=== PATIENT | female | born 1980 | race Caucasian/White ===

== ENCOUNTER 2019-04-13 23:46 | Emergency (ER) | payer OTHER ==
[~2019-04-13] VITALS: Ht 114.3 cm; Wt 45.4 kg
[~2019-04-13 23:46] MED LIST: ACETAMINOPHEN325 M1 PO; ACYCLOVIR 400400 M1 PO; ACYCLOVIR 400400 MG PO; ALBUTEROL2.5 MG/0.5 INH; ANTI-DIARRHEA2 MG PO; APAP500; ASPIR 8181 MG PO; BISACODYL5 MG PO; BUPROPION PO; CENTRUM SILVER1 EAC2 PO; CIPROFLOXACIN500 M1 PO; CLARITIN10 M2 PO; CLARITIN10 MG PO; CLONAZEPAM PO; COLACE 100 MG100 MG PO; CYMBALTA60 MG PO; DEPAKOTE ER500 MG PO; DESYREL100 MG PO; ENALAPRIL MALEA10 M1 PO; EUCERIN CREME57 GM TP; FLEET ENEMA118 ML RE; FLEXERIL PO; FLONASE 0.05%50 MCG NASAL; HYDROCHLOROTHIA25 M1 PO; IMODIUM A-D1 MG/5 ML; IRON325 PO; KEFLEX500 MG PO; KRISTALOSE10 GM PO; LASIX 20 MG TAB20 MG PO; LEVOTHYROXINE0.05 MG PO; LINZESS145 MCG PO; LIORESAL 10 MG10 MG PO; LOPERAMIDE 2 MG2 M1 PO; MACROBID 100 M100 M1; MIRALAX17 GM PO; MULTIVITAMINS PO; NASAL DECONGEST30 MG PO; NYAMYC15 GM TOP; OMEPRAZOLE20 MG; ONDANSETRON HCL4 M2 PO; OXCARBAZEPINE150 MG; OXCARBAZEPINE300 MG PO; OYSTER SHELL C1 EAC4 PO; PHENERGAN 25 MG25 M1 PO; POLYETHYLENE G454 GM; PROMETHAZINE12.5 M1; PYRIDIUM200 MG; ROXICODONE5 M1 PO; SALINE NASAL SP30 ML NS; SENNA8.6 MG PO; SEROQUEL XR 30300 MG PO; SYNTHROID50 MCG PO; TESSALON PERLE100 MG PO; TOPAMAX50 MG PO; TOPROL XL25 MG PO; TUMS CHEWA500 MG/11 PO; TUMS PO; TYLENOL325 MG PO; URISPAS100 MG PO; VENTOLIN HFA 1818 GM INH; VITAMIN D3400 UNIT PO; ZADITOR5 M1 OPHTHALMIC; ZANTAC 150MG T150 MG PO; ZINC OXIDE60 GM TP
[2019-04-14] MEDS ORDERED: BIOTENE1000 ML SWISH&SPIT (01:29)
[2019-04-14] MEDS ORDERED: COLACE100 MG PO (01:29)
[2019-04-14] MEDS ORDERED: FLORANEX TABLE1 EACH PO (01:29)
[2019-04-14] MEDS ORDERED: ZOVIRAX200 MG PO (01:30)
[2019-04-14] MEDS ORDERED: NEURONTIN 400M400 M2 PO (01:31)
[2019-04-14] MEDS ORDERED: LATUDA40 MG PO (01:32)
[2019-04-14] MEDS ORDERED: LOPRESSOR50 MG PO (01:33)
[2019-04-14] MEDS ORDERED: MILK OF MA400 MG/5 M PO (01:35)
[2019-04-14] MEDS ORDERED: MUCINEX600 MG PO (01:38)
[2019-04-14] MEDS ORDERED: SINGULAIR 10 MG10 MG PO (01:38)
[2019-04-14] MEDS ORDERED: OXTELLAR XR300 MG PO (01:39)
[2019-04-14] MEDS ORDERED: OXYBUTYNIN 5 MG5 M2 PO (01:39)
[2019-04-14] MEDS ORDERED: OYSTER SHELL 51 EACH PO (01:41)
[2019-04-14] MEDS ORDERED: PROTONIX40 M2 PO (01:42)
[2019-04-14] MEDS ORDERED: XARELTO20 MG PO (01:43)
[2019-04-14] MEDS ORDERED: VITAMIN D32000 UNI2 PO (01:43)
[2019-04-14] MEDS ORDERED: AMBIEN5 MG PO (01:45)
[2019-04-14] MEDS ORDERED: PHENERGAN 25 MG25 M1 PO (01:46)
[2019-04-14] MEDS ORDERED: WELLBUTRIN 100100 MG PO (01:47)
[2019-04-14] MEDS ORDERED: SERTRALINE HCL100 MG PO (01:48)
[2019-04-14] MEDS ORDERED: LORAZEPAM 0.50.5 MG PO (01:49)
[2019-04-14] MEDS ORDERED: ENDOCET 5-3251 EACH PO (01:50)
[2019-04-14] MEDS ORDERED: IBU600 MG PO (01:51)
[2019-04-14 01:52] LABS: HEMATOCRIT 41.9 % (37.0-47.0); HEMOGLOBIN 13.8 gm/dL (12.0-15.0); MCH 27.4 pg (26.0-34.0); MCHC 32.9 g/dL (28.0-37.0); MCV 83.2 fL (80.0-100.0); RBC 5.04 mil/uL (4.20-5.00); RDW 15.4 % (10.5-14.5); WBC 10.7 thou/uL (4.0-11.0)
[2019-04-14 01:56] LABS: CALCIUM 9.1 mg/dL (8.5-10.1); CREATININE 0.5 mg/dL (0.6-1.0); POTASSIUM 3.3 mmol/L (3.5-5.1)
[2019-04-14 02:05] LABS: APTT 27.8 Seconds (24.5-32.8)
[2019-04-14 02:26] VITALS: BP 114/56
== END 2019-04-14 02:40 ==
LOC: ER 23:46
PROVIDERS: Emergency Medicine
DX: S01.511A Laceration without foreign body of lip, initial encounter (principal); T45.515A Adverse effect of anticoagulants, initial encounter; F17.210 Nicotine dependence, cigarettes, uncomplicated; F31.9 Bipolar disorder, unspecified; E03.9 Hypothyroidism, unspecified; K21.9 Gastro-esophageal reflux disease without esophagitis; G89.29 Other chronic pain; Z88.8 Allergy status to other drugs, medicaments and biological substances; Z88.1 Allergy status to other antibiotic agents; Z88.5 Allergy status to narcotic agent; Z79.899 Other long term (current) drug therapy; Z79.82 Long term (current) use of aspirin; Z79.01 Long term (current) use of anticoagulants; Z90.710 Acquired absence of both cervix and uterus; Z86.711 Personal history of pulmonary embolism; W05.0XXA Fall from non-moving wheelchair, initial encounter; Y93.89 Activity, other specified; Y92.128 Other place in nursing home as the place of occurrence of the external cause; Y99.9 Unspecified external cause status

== ENCOUNTER 2019-05-10 19:59 | Inpatient (IN) | payer OTHER ==
[~2019-05-10] VITALS: Ht 114.3 cm; Wt 55.0 kg
[~2019-05-10 19:59] MED LIST changes: +AMBIEN5 MG PO; +BIOTENE1000 ML SWISH&SPIT; +COLACE100 MG PO; +ENDOCET 5-3251 EACH PO; +FLORANEX TABLE1 EACH PO; +IBU600 MG PO; +LATUDA40 MG PO; +LOPRESSOR50 MG PO; +LORAZEPAM 0.50.5 MG PO; +MILK OF MA400 MG/5 M PO; +MUCINEX600 MG PO; +NEURONTIN 400M400 M2 PO; +OXTELLAR XR300 MG PO; +OXYBUTYNIN 5 MG5 M2 PO; +OYSTER SHELL 51 EACH PO; +PROTONIX40 M2 PO; +SERTRALINE HCL100 MG PO; +SINGULAIR 10 MG10 MG PO; +VITAMIN D32000 UNI2 PO; +WELLBUTRIN 100100 MG PO; +XARELTO20 MG PO; +ZOVIRAX200 MG PO
[2019-05-10] MEDS ORDERED: AUGMENTIN 875-1 EACH PO (20:04)
[2019-05-10] MEDS ORDERED: BIOTENE PBF473 ML SWISH&SPIT (20:05)
[2019-05-10] MEDS ORDERED: BIOTENE ORALBAL42 G1 PO (20:06)
[2019-05-10 20:08] VITALS: BP 100/79
[2019-05-10] MEDS ORDERED: ONDANSETRON HCL4 M3 PO (20:26)
[2019-05-10] MEDS ORDERED: BIOFREEZE118 ML TOP (20:26)
[2019-05-10] MEDS ORDERED: NYSTATIN1 EAC4 TOP (20:27)
[2019-05-10] MEDS ORDERED: NYSTATIN15 G3 TOP (20:27)
[2019-05-10] MEDS ORDERED: IPRAT-ALBUT 0.5-3 ML INH (20:28)
[2019-05-10] MEDS ORDERED: ENEMA133 M1 RECTAL (20:28)
[2019-05-10] MEDS ORDERED: AMBIEN5 MG PO (20:28)
[2019-05-10 20:54] LABS: ABSOLUTE NEUTROPHILS 7.4 thou/uL (1.4-8.2); EOSINOPHILS 1.9 % (0.0-3.0); HEMATOCRIT 44.4 % (37.0-47.0); HEMOGLOBIN 14.8 gm/dL (12.0-15.0); LYMPHOCYTES 23.7 % (24.0-44.0); MCH 27.3 pg (26.0-34.0); MCHC 33.2 g/dL (28.0-37.0); MONOCYTES 5.8 % (1.0-8.0); PLATELET COUNT 374 thou/uL (150-400); POLYS 67.6 % (36.0-66.0); RBC 5.41 mil/uL (4.20-5.00); RDW 15.7 % (10.5-14.5); WBC 10.9 thou/uL (4.0-11.0)
[2019-05-10 21:07] LABS: CALCIUM 9.7 mg/dL (8.5-10.1); CREATININE 0.5 mg/dL (0.6-1.0); POTASSIUM 3.9 mmol/L (3.5-5.1)
[2019-05-10 21:12] LABS: ALBUMIN 3.8 g/dL (3.4-5.0); TOTAL BILIRUBIN 0.2 mg/dL (<0.1-1.0); TOTAL PROTEIN 8.1 g/dL (6.4-8.2)
[2019-05-10 22:16] LABS: URINE BILIRUBIN NEGATIVE (Negative); URINE BLOOD 2+ (Negative); URINE CLARITY CLOUDY; URINE COLOR YELLOW; URINE GLUCOSE-RANDOM* NEGATIVE (Negative); URINE KETONES NEGATIVE (Negative); URINE PROTEIN (DIPSTICK) 2+ (Negative); URINE UROBILINOGEN 0.2 E.U./dl (0.2-1.0)
[2019-05-10 22:21] LABS: URINE LEUKOCYTES-REFLEX 3+ (Negative); URINE NITRITE-REFLEX POSITIVE (Negative)
[2019-05-10 22:24] LABS: AMP/METHAMP Negative (Negative); BARBITURATES Negative (Negative); BENZODIAZEPINES Negative (Negative); COCAINE Negative (Negative); METHADONE Negative (Negative); OPIATES Negative (Negative); PCP Negative (Negative)
[2019-05-10 22:36] LABS: SQUAMOUS 0-3 Few /LPF (0-3); WBC CLUMPS Occasional (None Seen)
[2019-05-10 22:37] LABS: CASTS None Seen /LPF (None Seen); CRYSTALS None Seen /LPF (None Seen); MUCUS 0-3 Light strn/LPF (None Seen); URINE RBC 3-10 Few /HPF (0-2)
--- NOTE | 2019-05-10 22:44 | NUR ---
PSYCH COLLECTIONS CURATOR AT BEDSIDE
--- NOTE | 2019-05-10 23:04 | NUR ---
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
[2019-05-10 23:31] VITALS: BP 100/79
[2019-05-11 00:38] VITALS: BP 91/54
--- NOTE | 2019-05-11 03:03 | NUR ---
PT TO UNIT AROUND 0030. ADMISSION ASSESSMENT COMPLETED. PT HAS HX OF MRSA, WILL SWAB AND SEND TO LAB. EDUCATION ON USE OF CALL LIGHT, FALLS, AND UNIT PROVIDED. 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 PT HAS OWN BIPAP MACHINE IN ROOM. PT REQUESTS BED BE AT AN ANGLE TO BETTER SEE THE TV. USES AN ELECTRIC WHEELCHAIR AT HOME. WAS ABLE TO ROLL WELL FOR US, BUT NEEDS ASSISTANCE SITTING UP. WILL CONTINUE TO MONITOR.
[2019-05-11 08:45] VITALS: BP 127/67
--- NOTE | 2019-05-11 11:23 | NUR ---
PT ALERT XS 4. IN BED WATCHING TV. TOOK AM MEDS. HAS SUPRA PUBIC CATH WITH DARK YELLOW URINE IN SALES BAG. EMPTIED 1250 CC. PT HAS C-PAP THAT SHE USES.
[2019-05-11 16:15] VITALS: BP 104/78
--- NOTE | 2019-05-11 16:23 | NUR ---
FAXED DC ORDERS/SUMMARY TO [facility] RECEIVED CONFIRMATION AND SPOKE WITH AFSHIN IN ADM SHE ARRANGED TRANSPORT BY [facility] FOR 1730 TODAY. LEFT MSG WITH MOTHER ON DC AND TIME OF TRANSPORT. UNIT NOTIFIED AND CHART COPY PER US. RN TO CALL REPORT TO [phone].
--- NOTE | 2019-05-11 16:58 | NUR ---
DISCHARGE PAPERS SENT IN PACKET WITH PATIENT. IV ACSESS DCD. REPORT GIVEN TO GOVIND ROBERTS AT [facility]. SUPRA PUBIC CATH CLEANED AND DRESSING AROUND. ALL BELONGINGS PACKED AND WILL BE SENT WITH PATIENT. PT PLEASANT AND COOPERATIVE WITH CARE.
--- NOTE | 2019-05-11 17:04 | NUR ---
RX SENT WITH PATIENT.
== END 2019-05-11 17:45 | DRG 690 ==
LOC: ER 19:59 → EROBS 23:24 → 4S 23:24
PROVIDERS: Physician Assistant; ADMIT Internal Medicine
DX: N39.0 Urinary tract infection, site not specified (principal); G81.94 Hemiplegia, unspecified affecting left nondominant side; R45.851 Suicidal ideations; Z68.41 Body mass index [BMI] 40.0-44.9, adult; F43.20 Adjustment disorder, unspecified; F17.210 Nicotine dependence, cigarettes, uncomplicated; E34.3 Short stature due to endocrine disorder; F32.9 Major depressive disorder, single episode, unspecified; E66.01 Morbid (severe) obesity due to excess calories; E03.9 Hypothyroidism, unspecified; K21.9 Gastro-esophageal reflux disease without esophagitis; Z90.710 Acquired absence of both cervix and uterus; Z86.711 Personal history of pulmonary embolism; Z88.6 Allergy status to analgesic agent; Z88.1 Allergy status to other antibiotic agents; Z88.2 Allergy status to sulfonamides; Z88.8 Allergy status to other drugs, medicaments and biological substances; Z71.89 Other specified counseling; Z79.899 Other long term (current) drug therapy
CPT/HCPCS: 10195